=== PATIENT | female | born 2000 | race Caucasian/White ===

== ENCOUNTER → 2021-03-21 | Outpatient (CLI) | payer SELFPAY | LOC: COL.LAB 08:04 | DX: E03.9 Hypothyroidism, unspecified (principal) ==

== ENCOUNTER → 2022-03-08 | Outpatient (CLI) | payer OTHER | LOC: COL.LAB 11:52 | DX: E03.9 Hypothyroidism, unspecified (principal) ==

== ENCOUNTER 2022-03-21 19:19 | Emergency (ER) | payer OTHER ==
[~2022-03-21] VITALS: Ht 170.2 cm; Wt 65.9 kg
[2022-03-21 19:26] VITALS: TEMP 98.5
[2022-03-21] MEDS ORDERED: SYNTHROID0.1 MG/TAB PO (19:59)
[2022-03-21] MEDS ORDERED: CORLANOR5 MG PO (19:59)
[2022-03-21] MEDS ORDERED: MIRENA52 MG IY (20:00)
[2022-03-21] MEDS ORDERED: INSULIN HUMA100 U/ML SQ (20:01)
[2022-03-21 20:11] LABS: BASO # 0.1 K/mm3 (0.0-0.2); BASO % 1.2 % (0.0-2.0); EOS # 0.4 K/mm3 (0.0-0.7); EOS % 4.2 % (0.0-4.0); GRAN % 57.7 % (42.2-75.2); HEMATOCRIT 37.5 % (37.0-47.0); HEMOGLOBIN 12.4 g/dl (12.5-16.0); LYMPH # 2.6 K/mm3 (1.2-3.4); LYMPH % 29.6 % (20.0-51.0); MEAN CELL VOLUME 88 fl (80.0-100.0); MEAN CORPUSCULAR HEMOGLOBIN 29 pg (27-31); MEAN CORPUSCULAR HGB CONC 33 g/dl (33.0-37.0); MEAN PLATELET VOLUME 10.5 fl (7.4-10.4); MONO # 0.6 K/mm3 (0.1-0.6); MONO % 7.1 % (1.7-9.3); PLATELET COUNT 321 K/mm3 (130-400); RED BLOOD COUNT 4.28 M/mm3 (4.10-5.30); REDCELL DISTRIBUTION WIDTH-CV 13.7 % (11.5-14.5)
[2022-03-21 20:20] LABS: CREATININE, serum 0.78 mg/dL (0.57-1.11)
[2022-03-21 20:27] LABS: TROPONIN-I 0.014 ng/mL (0.00-0.033)
[2022-03-21 23:57] VITALS: BP 114/70; PULSE 76
== END 2022-03-21 23:57 | disposition home or self-care (01) ==
LOC: COL.ER 19:19
PROVIDERS: Emergency Medicine
DX: R07.9 Chest pain, unspecified (principal); R06.02 Shortness of breath; E10.9 Type 1 diabetes mellitus without complications; E03.9 Hypothyroidism, unspecified; Z28.310 Unvaccinated for COVID-19; Z79.890 Hormone replacement therapy